=== PATIENT | male | born 1930 | race Caucasian/White ===

== ENCOUNTER 2016-09-23 10:15 | Inpatient (IN) ==
[2016-09-23] MEDS ORDERED: LOVENOX SUBQ SCH (12:00)
[2016-09-23 12:28] LABS: MANUAL DIFF NEEDED? NO
[2016-09-23 12:34] LABS: BASO% 0.5 % (0.0-0.8); EOS% 1.6 % (0.0-10.0); HEMATOCRIT 46.6 % (42.0-52.0); HEMOGLOBIN 15.7 g/dL (14.0-18.0); IMM GRAN# 0.49 X1000 (0.0-0.04); IMM GRAN% 3.8 % (0.0-0.5); LYMPH# 1.48 X1000 (1.2-3.4); LYMPH% 11.5 % (20.5-51.1); MCH 32.8 PG (27-31); MCHC 33.7 g/dL (33-37); MCV 97.3 FL (81-99); MONO# 0.96 X1000 (0.11-0.59); MONO% 7.5 % (1.7-9.3); MPV 11.5 FL (7.4-10.4); NEUT% 75.1 % (42.2-75.2); PLT 240 X1000 (130-400); RBC 4.79 XMIL (4.7-6.1)
--- NOTE | 2016-09-23 12:49 | Diag Imaging Result Doc PS360 ---
EXAM: MRI LUMBAR SPINE W/WO CONTRAST INDICATION: Back pain TECHNIQUE: COMPARISON: None available. FINDINGS: There is a defect involving the sacrum centered around S2 with apparent marrow edema at its periphery. This is concerning for a recent sacral fracture. Correlate clinically for pain in this region and follow-up with plain radiography or CT if necessary. There is also a small sacral cyst in this region. At T11-12 on the left there is an incidental foraminal nerve sheath cysts. The conus medullaris appears normal. There are a few renal cysts. Surrounding soft tissues are essentially unremarkable, otherwise. Segmental analysis of the lumbar spine is detailed below. L1-2: There is a small broad-based disc osteophyte complex. It is causing no significant central canal or neuroforaminal stenosis. L2-3: There is a small broad-based disc osteophyte complex. It is causing only minimal effacement of the ventral thecal sac. No high-grade central canal or neuroforaminal stenosis is appreciated. L3-4: There is a broad-based disc osteophyte complex and posterior element hypertrophy. This is causing moderate central stenosis there is no evidence of high-grade foraminal stenosis. L4-5: There is a broad-based disc osteophyte complex and posterior element hypertrophy. This is causing moderate central stenosis. There is also moderate left neuroforaminal stenosis. There is contact with the nerve root as it exits the neuroforamen on the left. No significant mass effect is appreciated. L5-S1: Essentially unremarkable. IMPRESSION: 1.Sacral cortical defect with surrounding marrow edema. A recent sacral fracture is possible. 2.Multilevel mild to moderate degenerative disc disease and facet arthropathy as detailed level by level above. Electronically signed by Jerry Ratliff 09/23/2016 12:47 PM
[2016-09-23 12:54] LABS: ALBUMIN 3.7 g/dL (3.5-5.0); CALCIUM 8.8 mg/dL (8.8-10.2); POTASSIUM 4.9 mmol/L (3.5-5.1); TOTAL BILIRUBIN 0.77 mg/dL (0.20-1.00)
[2016-09-23] MEDS: DILAUDID IV PRN ×2 (13:13→20:01)
[2016-09-23] MEDS: NS 1,000 ML IV SCH (13:31)
[2016-09-23] MEDS: PEPCID IV SCH (13:33)
[2016-09-23] MEDS: SOLU-MEDROL IV SCH ×2 (13:34→20:00)
[2016-09-23] MEDS: SODIUM CHLORIDE 0.9% INJ SCH (13:35)
[2016-09-23 13:45] LABS: SED RATE 3 mm/hr (0-15)
[2016-09-23 14:12] LABS: URINE MICRO REVIEW NEEDED? NO; URINE SOURCE CLEAN CATCH
[2016-09-23 14:18] LABS: BILIRUBIN URINE NEGATIVE (NEGATIVE); BLOOD URINE NEGATIVE (NEGATIVE); COLOR YELLOW; GLUCOSE URINE TRACE mg/dL (NEGATIVE); LEUKOCYTES URINE NEGATIVE (NEGATIVE); NITRITE URINE NEGATIVE (NEGATIVE); PH URINE 5.5; PROTEIN URINE TRACE mg/dL (NEGATIVE); SP GRAVITY URINE 1.024; TURBIDITY URINE CLEAR (CLEAR); UROBILINOGEN URINE NORMAL (NORMAL)
[2016-09-23 14:19] LABS: UR EPITHELIAL CELLS <10 /HPF (<10); URINE BACTERIA NEGATIVE /HPF; URINE RBC <10 /HPF (<10); URINE WBC <10 /HPF (<10)
--- NOTE | 2016-09-23 22:12 | HISTORY AND PHYSICAL ---
CHIEF COMPLAINT: Intractable back pain since fall 10 days ago. HPI: He is 85-year-old pleasant white gentleman, presented to our office today as a followup with lower back pain since last visit. He had a fall. Initial x-rays of both hips were normal. No definitive sacral injury identified. X-rays lumbar spine showed possible spondylolisthesis L5-S1 no acute bony injury identified. He was treated as an outpatient for the last 10 days. The pain is out of control and is a 10/10. Not able to walk. He was accompanied by the to my office today with a cane. He is not able to sit down. Gait is stable. Admitted to the hospital with intractable back pain, not eating well, baseline creatinine 1.7, is slightly dehydrated. As a result a hospital admission was warranted. He also needed further evaluation for this intractable back pain. PAST MEDICAL HISTORY: BPH, hemodynamics stenosis with right carotid artery. The patient refused for carotid endarterectomy, chronic renal failure-creatinine 1.7, coronary artery disease and has a 80% distal RCA, 23% circumflex and diagonal 80-90%, type 2 diabetes, hypertension, sleep apnea, fibromyalgia rheumatica, sebaceous cyst. PAST SURGICAL HISTORY: Cataract surgery. MEDICINES: Johnson 5 once daily, aspirin 1 tablet daily, Lipitor 40 daily, benazepril 40 mg daily, isosorbide 30 daily, metoprolol 25 daily. ALLERGIES: Not known. SOCIAL HISTORY: , 3 children, retired, used to smoke pipe smoking, no alcohol. FAMILY HISTORY: Father of pneumonia complications at 48. Mom of breast cancer at 55. HEALTH MAINTENANCE: Flu vaccine declined, pneumococcal vaccine 2004, tetanus 2003, shingles 2011, last PSA prostate exam 11/2015, colonoscopy was refused. REVIEW OF SYSTEMS: HEENT: No headache. No vision problem. No earache. No sore throat. Neck: Significant stenosis right carotid artery declined surgery . Cardiopulmonary: No chest pain, shortness of breath, PND, orthopnea. GI: No nausea, vomiting, abdominal pain. : History of hesitancy, frequency stable and back pain radiating to the right side. Not able to walk and no weakness and pain of 10/10. No tingling, numbness. No claudication symptoms and no bruises noted on the back. Neurologic: No focal symptoms like weakness or seizures. PHYSICAL EXAMINATION: VITAL SIGNS: Afebrile. Vitals are stable. Blood pressure is 130/90, 6 feet, 171 pounds and I's and O's are negative -420. HEENT EXAM: Atraumatic, normocephalic. Pupils equal, react to light. TMs are normal. Nose and throat within normal limits. NECK: Supple. No lymphadenopathy. No goiter. Carotid bruit on the right side. CHEST: Bilateral air entry. No rales, no wheezing. HEART: Sounds are regularly tachycardic. BELLY: Soft, nontender. Good bowel sounds. No masses palpable. RECTAL: Deferred. EXTREMITIES: No peripheral edema, cyanosis, decreased pulses and motor 4/5 on the right side and no sensory deficits and no obvious weakness noted. INVESTIGATIONS: CBC: White cell count 12, hematocrit 46, platelet count 240,000 SMA 7: Sodium 139, potassium 4.9, chloride 99, BUN 42, creatinine 1.9. LFTs were normal. Urinalysis is clear. ASSESSMENT AND PLAN: 1. 85-year-old white gentleman, admitted to the hospital basically with intractable back pain, history of injury. Follow up on MRI report and physical therapy evaluation. 2. Dehydration. Gentle IV fluids. 3. Gastrointestinal prophylaxis with IV Pepcid, deep vein thrombosis prophylaxis with Lovenox. Pain control with Dilaudid and Medrol dose IV steroids. 4. Reconcile home medications. 5. Coronary artery disease. Continue on aspirin, beta blockers, isosorbide. 6. Hypertension on benazepril. 7. Right carotid stenosis refused for surgery, continue medical management and will follow up on the MRI report. cc: Joe Carlos MD
[2016-09-24] MEDS: PEPCID IV SCH ×2 (01:00→13:27)
[2016-09-24] MEDS: NS 1,000 ML IV SCH ×2 (02:00→13:28)
[2016-09-24] MEDS: SOLU-MEDROL IV SCH ×3 (04:45→21:00)
[2016-09-24 08:07] LABS: BASO% 0.2 % (0.0-0.8); HEMATOCRIT 45.5 % (42.0-52.0); HEMOGLOBIN 15.5 g/dL (14.0-18.0); IMM GRAN# 0.21 X1000 (0.0-0.04); IMM GRAN% 1.8 % (0.0-0.5); LYMPH# 0.84 X1000 (1.2-3.4); LYMPH% 7.3 % (20.5-51.1); MANUAL DIFF NEEDED? YES; MCH 32.7 PG (27-31); MCHC 34.1 g/dL (33-37); MONO# 0.32 X1000 (0.11-0.59); MONO% 2.8 % (1.7-9.3); MPV 11.9 FL (7.4-10.4); NEUT% 87.9 % (42.2-75.2); PLT 202 X1000 (130-400); RBC 4.74 XMIL (4.7-6.1)
[2016-09-24 08:29] LABS: CALCIUM 8.4 mg/dL (8.8-10.2); POTASSIUM 5.2 mmol/L (3.5-5.1)
[2016-09-24] MEDS ORDERED: TOPROL XL PO SCH (09:00)
[2016-09-24 09:20] LABS: BANDS 2 % (0-1); LYMPHS 6 % (21-51)
[2016-09-24] MEDS: LOTENSIN PO SCH (10:00)
[2016-09-24] MEDS: IMDUR PO SCH (10:01)
--- NOTE | 2016-09-24 11:51 | EKG Report ---
Test Performed on : 09/24/2016 10:40:21 AM Test Reason : irregular pulse Blood Pressure : / mmHG Vent. Rate : 120 BPM Atrial Rate : 258 BPM P-R Int : 000 ms QRS Dur : 078 ms QT Int : 334 ms P-R-T Axes : 000 041 -27 degrees QTc Int : 472 ms Atrial fibrillation. with rapid ventricular response. Nonspecific T wave abnormality Abnormal ECG When compared with ECG of 30-JUN-2013 11:42, Atrial fibrillation. has replaced Sinus rhythm. Vent. rate has increased BY 58 BPM Inverted T waves have replaced nonspecific T wave abnormality in Inferior leads Nonspecific T wave abnormality now evident in Lateral leads Confirmed by Ananda GOULD, Rolly Yun ([id number]) on 09/24/2016 2:17:25 PM
[2016-09-24] MEDS: LANOXIN PO SCH (13:27)
--- NOTE | 2016-09-24 19:18 | PROGRESS NOTE ---
DATE: 09/24/2016 SUBJECTIVE: Pain is somewhat easing up and MRI findings were discussed with the Dr. Larsen. He had sacral fractures. REVIEW OF SYSTEMS: Irregular heartbeat. No complaints. OBJECTIVE: Vital signs: Stable and afebrile. Initial heart rate is 120, blood pressure is stable. HEENT: Within normal limits. Chest: Clear. Heart: Irregular heart sounds. Abdomen: Belly is soft, nontender. Good bowel sounds. Neurologic: No neurological deficits. PERTINENT DATA: EKG: Atrial fibrillation with rapid ventricular response. CBC: White cell count 11.46, hematocrit 45, platelets 202,000. SMA7: Sodium 137, potassium 5.2, chloride 102, BUN 37, creatinine 1.5. Urinalysis is clear. ASSESSMENT AND PLAN: 1. Back pain due to sacral fracture. Discussed the findings. Continue on physical therapy and IV steroids and pain control. 2. Dehydration improving. 3. Atrial fibrillation, unknown duration. Rate control basically with metoprolol, Lanoxin, and high risk for stroke based on the CHADS2 VASc scores. Eliquis 2.5 p.o. b.i.d., and GI prophylaxis with Pepcid and we will check the echocardiogram and cardiac enzymes and thyroid function tests. LEVEL OF DOCUMENTATION: 25 minutes. Discussed the plan of care with the family. cc: Joe Carlos MD
[2016-09-24] MEDS: DILAUDID IV PRN (21:18)
[2016-09-24] MEDS: LIPITOR PO SCH (21:20)
[2016-09-24] MEDS: ELIQUIS PO SCH (21:20)
[2016-09-25] MEDS: PEPCID IV SCH ×2 (00:48→14:52)
[2016-09-25] MEDS: SODIUM CHLORIDE 0.9% INJ SCH (00:48)
[2016-09-25] MEDS: SOLU-MEDROL IV SCH ×3 (03:31→22:46)
[2016-09-25 07:40] LABS: CALCIUM 8.2 mg/dL (8.8-10.2); POTASSIUM 5.2 mmol/L (3.5-5.1)
[2016-09-25 07:47] LABS: FREE T4 1.53 ng/dL (0.93-1.70)
[2016-09-25] MEDS: LOTENSIN PO SCH (10:25)
[2016-09-25] MEDS: IMDUR PO SCH (10:25)
[2016-09-25] MEDS: ELIQUIS PO SCH ×2 (10:25→22:45)
[2016-09-25] MEDS: LANOXIN PO SCH (10:25)
[2016-09-25] MEDS: TOPROL XL PO SCH ×2 (10:26→22:45)
[2016-09-25] MEDS: DILAUDID IV PRN (11:05)
--- NOTE | 2016-09-25 19:27 | PROGRESS NOTE ---
DATE: 09/25/2016 SUBJECTIVE: The patient pain is slowly coming back. Out of the bed and he initially was adamant to go home. He is in atrial fibrillation at this time. No chest pain, no shortness of breath. PHYSICAL EXAMINATION: Vital Signs: Stable. HEENT: Within normal limits. Neck: Supple. Chest: Clear. Heart: Sounds are regular. Abdomen: Belly is soft, nontender. Neurologic: No obvious neurological deficits. INVESTIGATIONS: SMA7: Sodium 137, potassium 5.2, chloride 104, BUN 41, creatinine 1.4. Cardiac enzymes were negative. Thyroid function tests were normal. ASSESSMENT AND PLAN: 1. Back pain due to sacral fracture. Continue IV steroids and pain control. 2. Atrial fibrillation. Normal thyroid function test. Normal cardiac enzymes. Control the ventricular response by Lanoxin 125 mcg daily. Increase metoprolol 50 p.o. b.i.d. High risk for thromboembolic disease. On Eliquis 2.5 p.o. b.i.d. 3. Chronic kidney disease. We will change the Lanoxin every other day. Stable. Since he is eating well, discontinue IV fluids and discussed with the patient. LEVEL OF DOCUMENTATION: 25 minutes. cc: Joe Carlos MD
[2016-09-25] MEDS: LIPITOR PO SCH (22:45)
[2016-09-26] MEDS: SODIUM CHLORIDE 0.9% INJ SCH (00:44)
[2016-09-26] MEDS: PEPCID IV SCH (00:44)
[2016-09-26] MEDS: SOLU-MEDROL IV SCH (06:30)
[2016-09-26 08:43] VITALS: BP 152/94
[2016-09-26] MEDS: LOTENSIN PO SCH (09:38)
[2016-09-26] MEDS: ELIQUIS PO SCH (09:39)
[2016-09-26] MEDS: LANOXIN PO SCH (09:39)
[2016-09-26] MEDS: TOPROL XL PO SCH (09:39)
[2016-09-26] MEDS: IMDUR PO SCH (09:41)
--- NOTE | 2016-09-27 16:48 | DISCHARGE SUMMARY ---
ADMISSION DATE: 09/23/2016 DISCHARGE DATE: 09/26/2016 DISCHARGING DIAGNOSIS: Intractable back pain due to sacral fracture. SECONDARY DIAGNOSES: 1. Atrial fibrillation. 2. Benign prostatic hypertrophy. 3. Significant stenosis of right internal carotid artery. 4. Chronic renal failure. Creatinine 1.7. 5. Coronary artery disease, stable. 6. Type 2 diabetes. 7. Hypertension. 8. Sleep apnea. 9. Polymyalgia rheumatica, stable. BRIEF HISTORY: Please see the H and P that was done on 09/23/2016. In brief, he is an 85-year- old pleasant white gentleman with several problems admitted to the hospital after he fell at home and sustained injury to the back. He was not able to walk. Pain is going to the right leg. HOSPITAL COURSE: He was initially dehydrated, given IV fluids. MRI findings discussed with the patient of the sacral fracture. He was given inpatient physical therapy. In the meantime, he also was found to have intermittent atrial fibrillation. He has underlying atherosclerotic cardiovascular disease. He is refusing for any further interventions; for right carotid surgery, as well as any stents for the heart disease. He is basically relegated to medical management. The pain is adequately improved and able to function. He has been going to the bathroom on his own. LABS: CBC: White cell count 11, hematocrit 45, platelets 202. SMA 7: Sodium 137, potassium 5.2, chloride 104, BUN 40, creatinine 1.4, glucose 171, calcium 8.2. Cardiac enzymes were negative. Thyroid functions normal. Urinalysis is clear. Sedimentation rate was 3. Urine cultures were negative. X-RAYS: MRI of lumbar spine findings: The sacral cortical defect with marrow edema consistent with sacral fracture. Multilevel DJD changes. Facet arthropathy in the lumbar spine. DISCHARGE INSTRUCTIONS: 1. Right carotid stenosis refusing for carotid endarterectomy. Continue secondary prevention. 2. Chronic kidney disease. Creatinine 1.7, stable. 3. Noncritical ischemic heart disease. Continue on Imdur 30 mg daily. 4. Metoprolol 25 daily p.o. b.i.d. 5. Atrial fibrillation. Control the ventricular response by increasing the metoprolol and added Eliquis 2.5 p.o. b.i.d. and Lanoxin 62.5 mcg daily. 6. Chronic back pain on Medrol Dosepak. 7. Hypertension on benazepril 40 mg daily. 8. Hyperlipidemia on Lipitor 40 daily. 9. Follow up in the office in 10 days. cc: Joe Carlos MD
== END 2016-09-26 10:30 | disposition home or self-care (01) ==
LOC: DIRADM 10:15 → 3N 10:49
PROVIDERS: ADMIT Internal Medicine; ATTEND Internal Medicine